=== PATIENT | male | born 1970 | race African-American/Black ===

== ENCOUNTER 2017-03-16 21:22 | Inpatient (IN) | payer OTHER ==
[~2017-03-16] VITALS: Ht 182.9 cm; Wt 103.4 kg
[2017-03-16 22:00] LABS: BASOPHIL (%) 0.5 % (0-1); BASOPHIL COUNT 0.1 K/uL (0-0.1); EOSINOPHIL (%) 3.1 % (0-5); EOSINOPHIL COUNT 0.3 K/uL (0-0.3); HEMOGLOBIN 14.2 G/DL (12.5-16.6); IMMATURE GRANULOCYTE (%) 0.2 % (0.0-0.7); LYMPHOCYTE COUNT 2.6 K/uL (1.0-2.8); MCH 30.7 PG (29.0-34.0); MCHC 33.8 G/DL (30.0-36.0); MCV 90.9 FL (86-99); MONOCYTE (%) 8.3 % (3-12); MONOCYTE COUNT 0.8 K/uL (0-0.8); NEUTROPHIL (%) 60.9 % (45-76); NEUTROPHIL COUNT 5.8 K/uL (1.8-6.4); PLATELET COUNT 138 K/uL (156-360); RBC DIS.WIDTH-CV 13.9 % (11.8-14.6); RBC DIS.WIDTH-SD 46.5 % (39-53); RED BLOOD COUNT 4.62 M/uL (4.00-5.50); WHITE BLOOD COUNT 9.5 K/uL (4.1-10.2)
[2017-03-16 22:05] LABS: INTER. NORMALIZED RATIO 1.1
[2017-03-16 22:07] LABS: PTT 30.1 SEC (25-37)
[2017-03-16 22:14] LABS: CHLORIDE 105 mEq/L (99-109); POTASSIUM 3.9 mEq/L (3.7-5.4); SODIUM 140 mEq/L (136-147)
[2017-03-16 22:15] LABS: GLUCOSE 82 mg/dL (70-99)
[2017-03-16 22:20] LABS: UREA NITROGEN (BUN) 14 mg/dL (9-23)
[2017-03-16 22:27] LABS: GFR ESTIMATE (CALCULATED) > 59 mL/min/ (58.99-99999)
[2017-03-17 02:56] LABS: TOTAL BILIRUBIN 0.6 mg/dL (0.0-1.0)
[2017-03-17 02:59] LABS: ALBUMIN 4.2 g/dL (3.2-4.8); AST (GOT) 14 IU/L (2-34)
[2017-03-17 03:02] LABS: TOTAL PROTEIN 7.5 g/dL (6.4-8.3)
[2017-03-17 03:05] LABS: ALKALINE PHOSPHATASE 87 IU/L (3-129)
[2017-03-17 03:08] LABS: ALT (GPT) 11 IU/L (3-49); DIRECT BILIRUBIN 0.2 mg/dL (0.0-0.3)
[2017-03-17 04:28] LABS: HEMATOCRIT 40.7 % (38.0-50.0); HEMOGLOBIN 13.9 G/DL (12.5-16.6); MCH 30.9 PG (29.0-34.0); MCHC 34.2 G/DL (30.0-36.0); MCV 90.4 FL (86-99); PLATELET COUNT 145 K/uL (156-360); RBC DIS.WIDTH-CV 13.8 % (11.8-14.6); RBC DIS.WIDTH-SD 46.5 % (39-53); WHITE BLOOD COUNT 9.8 K/uL (4.1-10.2)
[2017-03-17 04:49] LABS: TROP-I INTERPRETATION NEGATIVE; TROPONIN-I < 0.01 ng/mL (0.0-0.30)
[2017-03-17 16:12] VITALS: BP 143/108
[2017-03-17 19:15] VITALS: BP 161/91
[2017-03-18 00:15] VITALS: BP 140/84
[2017-03-18 04:30] VITALS: BP 133/79
[2017-03-18 08:00] VITALS: BP 141/84
[2017-03-18] MEDS ORDERED: ELIQUIS5 MG PO (14:26)
[2017-03-18] MEDS ORDERED: TRAMADOL HCL50 MG PO (14:27)
[2017-03-18] MEDS ORDERED: HYDROCHLOROTH12.5 M3 PO (14:27)
[2017-03-23 15:05] LABS: ACTIVATED PROTEIN C RESIST+ 4.3 ratio (>=2.1); ANTITHROMBIN III ACTIVITY+ 93 (80-120); DRVVT Mixing Study Interp Not Indicated (()); FACTOR VIII ACTIVITY+ 90 % (50-180); PROTEIN C FUNCTIONAL ACTIVITY+ 105 % (70-180); PTT-LA 200 sec (<=40); Protein S, Free 78 % normal (57-171); Thrombosis Consult Level Limited (()); dRVVT Screen 41 sec (<=45)
== END 2017-03-18 15:20 | disposition home or self-care (01) | DRG 176 ==
LOC: EME 21:22 → 4EAST 03-17 02:30 → EDOF 03-17 02:30 → 4EAST 03-17 02:30 → ENRESERV 03-17 02:31 → 4EAST 03-17 15:54
PROVIDERS: Emergency Medicine; Physician Assistant Medical
DX: I26.99 Other pulmonary embolism without acute cor pulmonale (principal); I82.411 Acute embolism and thrombosis of right femoral vein; I82.402 Acute embolism and thrombosis of unspecified deep veins of left lower extremity; I82.449 Acute embolism and thrombosis of unspecified tibial vein; I10 Essential (primary) hypertension; F17.210 Nicotine dependence, cigarettes, uncomplicated; Z86.718 Personal history of other venous thrombosis and embolism; Z86.711 Personal history of pulmonary embolism; Z82.49 Family history of ischemic heart disease and other diseases of the circulatory system; Z68.30 Body mass index [BMI] 30.0-30.9, adult
CPT/HCPCS: 71275; 80048; 80076; 81240 90; 83090 90; 83880; 84484; 85025; 85027; 85240 90; 85300 90; 85303 90; 85305 90; 85306 90; 85610; 85613 90; 85730; 85730 90; 86146 90; 86147 90; 93005; 93306; 93971; 99281; 99285; J0360; J1650